=== PATIENT | female | born 2000 | race Caucasian/White ===

== ENCOUNTER 2018-04-07 15:27 | Emergency (ER) | payer MEDICAID ==
[~2018-04-07] VITALS: Ht 160 cm; Wt 70.3 kg
[2018-04-07 15:31] VITALS: BP 139/77
--- NOTE | 2018-04-07 15:36 | NUR ---
PT. AMBULATED TO LOBY WITH STEADY GAIT, RR EVEN AND UNLABORED WITH FAMILY MEMBER
--- NOTE | 2018-04-07 16:10 | NUR ---
PT. ARRIVED TO ED W C/O RASH UNDER L BREAST X TODAY. PER PT " IT IS ITCHY AND DRY" . DENIES N/V/D; SKIN IS PINK/WARM/DRY; AAOX4 WITH EVEN AND STEADY GAIT; LUNGS CLEAR BL; HR EVEN AND REGULAR; PT DENIES ANY FEVER, CP, SOB, OR COUGH AT THIS TIME; PATIENT STATES PAIN OF 0/10 AT THIS TIME; VSS; PATIENT POSITIONED FOR COMFORT; HOB ELEVATED; BEDRAILS UP X2; BED DOWN. ER MD MADE AWARE OF PT STATUS.
[2018-04-07 16:22] VITALS: BP 128/76
--- NOTE | 2018-04-07 16:22 | NUR ---
Patient discharged with v/s stable. Written and verbal after care instructions given and explained. Patient alert, oriented and verbalized understanding of instructions. Ambulatory with steady gait. All questions addressed prior to discharge. ID band removed. Patient advised to follow up with PMD. Rx of LOTRIMIN given. Patient educated on indication of medication including possible reaction and side effects. Opportunity to ask questions provided and answered.
== END 2018-04-07 16:22 | disposition home or self-care (01) ==
LOC: MED 15:27
DX: B35.4 Tinea corporis (principal)
CPT/HCPCS: 99282

== ENCOUNTER 2018-07-02 13:17 | Inpatient (IN) | payer MEDICAID ==
[~2018-07-02] VITALS: Ht 160 cm; Wt 74.4 kg
[2018-07-02 13:34] VITALS: BP 113/77
--- NOTE | 2018-07-02 13:39 | NUR ---
PT TAKEN TO BED 04 BY WHEELCHAIR.
--- NOTE | 2018-07-02 13:39 | NUR ---
Patient transferred to bed 4 via wheelchair by tech. RN evaluating patient at bedside.
--- NOTE | 2018-07-02 13:45 | NUR ---
PATIENT IS A 18 Y/O FEMALE WHO PRESENTS TO THE ED C/O BILATERAL FOOT PAIN. PT STATES THAT SHE WAS WALKING ON AN UNEVEN SIDEWALK WHEN SHE FELL. PT REPORTS 10/10 ACHING BILATERAL FOOT PAIN, APPEARS SWOLLEN, CMS INTACT. PT DENIES CP, SOB, N/V/D. PT AWAKE AND ALERT, RR EVEN/UNLABORED. PT REPOSITIONED FOR COMFORT, BED IN LOWEST POSITION. ER PROVIDER NOTIFIED. WILL CONTINUE TO MONITOR.
--- NOTE | 2018-07-02 13:51 | NUR ---
XRAY AT BEDSIDE.
[2018-07-02] MEDS ORDERED: ACETAMINOPHEN EXTRA STRENGTH 500 MG TAB PO ONE (14:10)
[2018-07-02] MEDS ORDERED: KETOROLAC 30 MG/ML VIAL IM ONE (15:25)
--- NOTE | 2018-07-02 16:27 | NUR ---
BILATERAL SHORT LEG SPLINTS APPLIED TO LOWER EXTREMITIES. PMC INTACT.
[2018-07-02] MEDS ORDERED: ONDANSETRON 4 MG/2 ML VIAL IM/IVP PRN (16:50)
[2018-07-02] MEDS ORDERED: HYDROcodone/APAP 5/325 MG 1 TAB TAB PO PRN (16:50)
[2018-07-02] MEDS ORDERED: MORPHINE SULFATE 4 MG/ML SYR IVP PRN (16:50)
[2018-07-02] MEDS ORDERED: ACETAMINOPHEN 325 MG TAB PO PRN (16:50)
[2018-07-02] MEDS ORDERED: LORazepam 2 MG/ML VIAL IM/IVP PRN (16:50)
[2018-07-02] MEDS ORDERED: ZOLPIDEM 5 MG TAB PO PRN (16:50)
[2018-07-02] MEDS ORDERED: DOCUSATE SODIUM 100 MG GELCAP PO PRN (16:50)
--- NOTE | 2018-07-02 16:59 | NUR ---
Dr. Sherwood evaluating patient at bedside.
[2018-07-02 17:10] LABS: BASOPHILS % (AUTO) 0.3 % (0.0-2.0); EOSINOPHILS # (AUTO) 0.1 K/uL (0-0.4); EOSINOPHILS % (AUTO) 1.1 % (0.0-4.0); HEMATOCRIT 37.4 % (36-48); HEMOGLOBIN 12.5 g/dL (12.0-16.0); LYMPHOCYTES # (AUTO) 2.2 K/uL (2.5-16.5); LYMPHOCYTES % (AUTO) 17.5 % (20.5-51.1); MEAN CORPUSCULAR HEMOGLOBIN 27 pg (27-31); MEAN CORPUSCULAR HGB CONC 33 g/dL (33-37); MEAN CORPUSCULAR VOLUME 81.5 fL (80-94); MONOCYTES # (AUTO) 0.6 K/uL (0.8-1.0); MONOCYTES % (AUTO) 4.7 % (1.7-9.3); NEUTROPHILS # (AUTO) 9.4 K/uL (1.8-7.7); NEUTROPHILS % (AUTO) 76.4 % (42.2-75.2); PLATELET COUNT (AUTO) 357 K/uL (140-450); RED BLOOD CELL COUNT(AUTO) 4.59 MIL/uL (4.20-5.40); RED CELL DISTRIBUTION WIDTH 13.2 % (11.6-13.7); WHITE BLOOD COUNT (AUTO) 12.3 K/uL (4.5-11.0)
--- NOTE | 2018-07-02 17:15 | NUR ---
Patient will be admitted to care of DR. TELLES. Admited to M/S. Will go to room 111A. Belongings list completed. Report to TAL RANDOLPH.
[2018-07-02 17:24] LABS: APPEARANCE,URINE HAZY (CLEAR); BILIRUBIN,URINE NEGATIVE (NEGATIVE); BLOOD, URINE 1+ (NEGATIVE); COLOR,URINE YELLOW (YELLOW); LEUKOCYTE ESTERASE ,URINE 2+ (NEGATIVE); NITRITE, URINE NEGATIVE (NEGATIVE); UGLUCOSE NEGATIVE (NEGATIVE)
--- NOTE | 2018-07-02 17:25 | NUR ---
PATIENT ARRIVED ON UNIT VIA GURNEY ACCOMPANIED WITH ER NURSE MELANY AND FAMILY MEMBER. PATIENT IS AOX4. DENIES PAIN AND SOB. NO SIGNS OF DISTRESS NOTED. IV ON L HAND 22G, CLEAN AND INTACT, SL. PATIENT WAS DIAGNOSED WITH BILATERAL FOOT FRACTURE.FOOD ARE SUPPORTED BY CASTS. SKIN INTACT AND CLEAN, NO ACTIVE OPEN WOUND. PATIENT IS BEDREST. CONTINENT. ORIENTED PATIENT AND FAMILY TO THE ROOM, HOW TO USE THE CALL LIGHT, TV, BED REMOTE, AND LIGHT. BOTH VERBALIZED UNDERSTANDING. DISCUSSED PLAN OF CARE WITH PATIENT, AND PATIENT VERBALIZED UNDERSTANDING. MRSA NARES COLLECTED AND VITAL SIGNS TAKEN. SAFETY MEASURES IN PLACE. INSTRUCTED PATIENT TO USED THE CALL LIGHT FOR ANY ASSISTANCE AND PATIENT WAS AWARE.
[2018-07-02 17:26] LABS: BARBITURATE, URINE NEG. ng/ml (NEG <=200); BENZODIAZEPINE, URINE NEG. ng/mL (NEG <=200); CANNABINOID, URINE NEG. ng/mL (NEG <=50); COCAINE, URINE NEG. ng/mL (NEG <=300); OPIATE, URINE NEG. ng/mL (NEG <=2000); PHENCYCLIDINE SCREEN,URINE NEG. ng/mL (NEG <=25)
[2018-07-02 17:27] LABS: PROTHROMBIN TIME 9.7 secs (10.8-13.4)
[2018-07-02 17:31] LABS: ALBUMIN 3.8 g/dL (3.4-5.0); ANION GAP 13.1 (8-16); CARBON DIOXIDE 26.6 mmol/L (21-32); CREATININE 0.6 mg/dL (0.6-1.3); POTASSIUM 3.7 mmol/L (3.5-5.1); TOTAL BILIRUBIN 0.2 mg/dL (0.0-1.0)
[2018-07-02 17:34] LABS: WBC,URINE 16-25 (MOD) /HPF (0-5)
[2018-07-02 17:38] LABS: FREE T4 (FREE THYROXINE) 1.12 ng/dL (0.76-1.46); PHOSPHORUS 3.9 mg/dL (2.5-4.9); THYROID STIMULATING HORMONE 1.11 uIU/mL (0.34-3.74)
[2018-07-02] MEDS: NACL 0.9% 1,000 ML IV SCH (18:15)
--- NOTE | 2018-07-02 18:15 | NUR ---
STARTED IVF PER MD ORDER. PATIENT IS TALKING TO FAMILY MEMBER AT BEDSIDE. NO SIGNS OF DISTRESS NOTED. SAFETY MEASURES IN PLACE.
[2018-07-02 18:41] VITALS: BP 108/70
--- NOTE | 2018-07-02 19:30 | NUR ---
ENDORSED PATIENT TO CASE WORKER NURSE FOR CONTINUITY OF CARE. PATIENT IS IN STABLE CONDITION.
--- NOTE | 2018-07-02 19:31 | NUR ---
Received endorsement from AM shift RN; patient is A/Ox4, able to make needs known, on bedrest. Patient is talking with boyfriend; introduced self, updated board. No SOB or distress noted, on room air. IV site on left hand, 22 gauge, intact with IVF running at 100mL/hr. Skin intact. Bed in the lowest position, call light within reach. Initial assessment done. Will continue to monitor.
[2018-07-02] MEDS: MORPHINE SULFATE 2 MG/ML SYR IVP PRN (21:08)
--- NOTE | 2018-07-02 21:35 | NUR ---
Due meds given; tolerated well.
--- NOTE | 2018-07-02 23:40 | NUR ---
Vitals taken, no SOB or distress noted.
[2018-07-03] VITALS: BP 118/71
--- NOTE | 2018-07-03 02:05 | NUR ---
Rounds made; patient asleep, eyes closed, visible chest rise and fall noted.
[2018-07-03] MEDS: NACL 0.9% 1,000 ML IV SCH ×3 (03:02→23:45)
--- NOTE | 2018-07-03 04:05 | NUR ---
Frequent checks made; no distress noted. Patient sleeping on right lateral side.
--- NOTE | 2018-07-03 07:10 | NUR ---
Endorsed patient to AM shift RN for continuity of care; patient in stable condition.
--- NOTE | 2018-07-03 07:20 | NUR ---
RECEIVED BEDSIDE REPORT FROM ORACLE ETL DEVELOPER NURSE FOR CONTINUITY OF CARE. PATIENT WAS AWAKE AND SITTING UP ON BED AT THIS TIME. BOYFRIEND ALEVISM WAS AT BEDSIDE. PATIENT IS AOX4. PATIENT DENIED PAIN AND SOB. RESPIRATION EVEN AND UNLABORED ON RA. NO SIGNS OF DISTRESS NOTED. IV ON L HAND 22G, INTACT AND CLEAN, INFUSING PER MD ORDER. SKIN INTACT AND CLEAN. PATIENT IS BEDREST AT THIS TIME. LEGS ARE SUPPORTED BY CASTS. DISCUSSED PLAN OF CARE WITH PATIENT AND ALEVISM, BOTH VERBALIZED OK. SAFETY PRECAUTION IN PLACE. BED IN LOW POSITION AND CALL LIGHT WITHIN REACH. INSTRUCTED PATIENT AND ALEVISM TO USE THE CALL LIGHT FOR ANY ASSISTANCE, AND BOTH VERBALIZED UNDERSTANDING.
[2018-07-03 08:00] VITALS: BP 101/61
[2018-07-03] MEDS: LACTOBACILLUS RHAMNOSUS GG 1 EACH CAP PO SCH (08:52)
--- NOTE | 2018-07-03 08:57 | NUR ---
PATIENT HAS BEEN SCREENED AND CATEGORIZED LOW NUTRITION RISK. PATIENT WILL BE SEEN WITHIN 7 DAYS OF ADMISSION. 07/09/[address]
[2018-07-03 08:59] LABS: BASOPHILS % (AUTO) 0.1 % (0.0-2.0); EOSINOPHILS # (AUTO) 0.1 K/uL (0-0.4); EOSINOPHILS % (AUTO) 1.4 % (0.0-4.0); HEMATOCRIT 37.1 % (36-48); HEMOGLOBIN 12.3 g/dL (12.0-16.0); LYMPHOCYTES % (AUTO) 21.7 % (20.5-51.1); MEAN CORPUSCULAR HEMOGLOBIN 27 pg (27-31); MEAN CORPUSCULAR HGB CONC 33 g/dL (33-37); MEAN CORPUSCULAR VOLUME 82.3 fL (80-94); MONOCYTES # (AUTO) 0.6 K/uL (0.8-1.0); MONOCYTES % (AUTO) 5.9 % (1.7-9.3); NEUTROPHILS # (AUTO) 6.7 K/uL (1.8-7.7); NEUTROPHILS % (AUTO) 70.9 % (42.2-75.2); PLATELET COUNT (AUTO) 333 K/uL (140-450); RED BLOOD CELL COUNT(AUTO) 4.51 MIL/uL (4.20-5.40); RED CELL DISTRIBUTION WIDTH 13.1 % (11.6-13.7); WHITE BLOOD COUNT (AUTO) 9.4 K/uL (4.5-11.0)
--- NOTE | 2018-07-03 09:45 | NUR ---
PATIENT IS SITTING UP ON BED AND TALKING TO BOYFRIEND DRUZE AT BEDSIDE. DENIES PAIN AND SOB. NO SIGNS OF DISTRESS NOTED. SAFETY MEASURES IN PLACE. BED IN LOW POSITION AND CALL LIGHT WITHIN REACH.
[2018-07-03 10:11] LABS: MAGNESIUM 1.8 mg/dL (1.8-2.4); PHOSPHORUS 3.3 mg/dL (2.5-4.9)
[2018-07-03 10:29] LABS: CARBON DIOXIDE 24.6 mmol/L (21-32); POTASSIUM 3.6 mmol/L (3.5-5.1)
[2018-07-03 10:30] LABS: CREATININE 0.6 mg/dL (0.6-1.3)
--- NOTE | 2018-07-03 10:51 | NUR ---
DR ALBRIGHT IS TALKING TO PATIENT AND MOTHER AT BEDSIDE. NO SIGNS OF DISTRESS NOTED. SAFETY MEASURES IN PLACE.
[2018-07-03] MEDS: MORPHINE SULFATE 2 MG/ML SYR IVP PRN (11:20)
--- NOTE | 2018-07-03 11:20 | NUR ---
PATIENT COMPLAINED L FOOT PAIN 09/22. ADMINISTERED PRN MORPHINE, PATIENT TOLERATED WELL. PATIENT IS TALKING TO MOTHER AT BEDSIDE. NO SIGNS OF DISTRESS NOTED. SAFETY MEASURES IN PLACE. BED IN LOW POSITION AND CALL LIGHT WITHIN REACH. INSTRUCTED PATIENT TO USE THE CALL LIGHT FOR ANY ASSISTANCE AND PATIENT WAS AWARE.
--- NOTE | 2018-07-03 13:18 | NUR ---
PATIENT IS AWAKE AND TALKING ON HER PHONE AT THIS TIME. DENIES PAIN AND SOB. NO SIGNS OF DISTRESS NOTED. SAFETY MEASURES IN PLACE. INSTRUCTED PATIENT TO USE THE CALL LIGHT FOR ANY ASSISTANCE AND PATIENT WAS AWARE.
[2018-07-03 16:00] VITALS: BP 107/56
--- NOTE | 2018-07-03 17:25 | NUR ---
PATIENT IS TALKING TO BOYFRIEND SYNAGOGUE AT BEDSIDE. DENIES PAIN AND SOB. NO SIGNS OF DISTRESS NOTED. SAFETY MEASURES IN PLACE. INSTRUCTED PATIENT TO USE THE CALL LIGHT FOR ANY ASSISTANCE AND PATIENT VERBALIZED UNDERSTANDING.
--- NOTE | 2018-07-03 17:57 | NUR ---
PATIENT IS AWAKE AND SITTING UP ON BED AND TALKING TO VISITORS. DENIES PAIN AND SOB. NO SIGNS OF DISTRESS NOTED. SAFETY MEASURES IN PLACE. INSTRUCTED PATIENT TO USE THE CALL LIGHT FOR ANY ASSISTANCE AND PATIENT WAS AWARE.
--- NOTE | 2018-07-03 19:17 | NUR ---
ENDORSED PATIENT AT BEDSIDE TO ACIDITY TESTER NURSE FOR CONTINUITY OF CARE. PATIENT IS IN STABLE CONDITION. NO SIGNS OF DISTRESS NOTED. FAMILY MEMBERS ARE BY BEDSIDE. SAFETY MEASURES IN PLACE.
--- NOTE | 2018-07-03 19:18 | NUR ---
RECEIVED REPORT FROM DAY SHIFT NURSE KWABENA-RN AT BEDSIDE. BED RESTING IN BED, ON ROOM AIR WITH NS RUNNING @100ML/HR. PT FAMILY AT BEDSIDE. DISCUSSED PLAN OF CARE AND PT VERBALIZED UNDERSTANDING. NO S/S OF RESPIRATORY DISTRESS OR DISCOMFORT NOTED AT THIS TIME. BILATERAL FOOT FRACTURES WITH CAST IN PLACE. BED IN LOWEST POSITION, BED BREAKS ON, BOTH SIDE RAILS UP, WITH BEDSIDE COMMODE WITHIN REACH. BEDSIDE TABLE AND CALL LIGHT ARE WITHIN REACH. WILL CONTINUE TO MONITOR.
[2018-07-03 20:00] VITALS: BP 112/68
--- NOTE | 2018-07-03 20:00 | NUR ---
VITAL SIGNS TAKEN AND TOLERATED WELL. NO S/S OF RESPIRATORY DISTRESS OR DISCOMFORT NOTED AT THIS TIME. WILL CONTINUE TO MONITOR.
--- NOTE | 2018-07-03 20:32 | NUR ---
SCHEDULED MEDICATION GIVEN AND TOLERATED WELL. PT C/O PAIN 06/22- WILL ADMINISTER PAIN MEDICATION. NO S/S OF RESPIRATORY DISTRESS OR DISCOMFORT NOTED AT THIS TIME. WILL CONTINUE TO MONITOR.
--- NOTE | 2018-07-03 20:42 | NUR ---
NORCO GIVEN FOR PAIN. PT TOLERATED WELL. NO S/S OF RESPIRATORY DISTRESS OR DISCOMFORT NOTED AT THIS TIME. WILL CONTINUE TO MONITOR.
--- NOTE | 2018-07-03 23:00 | NUR ---
PT SLEEPING AT THIS TIME. NO S/S OF RESPIRATORY DISTRESS OR DISCOMFORT NOTED AT THIS TIME. WILL CONTINUE TO MONITOR.
[2018-07-04] VITALS: BP 100/51
--- NOTE | 2018-07-04 | NUR ---
VITAL SIGNS TAKEN AND TOLERATED WELL. NO S/S OF RESPIRATORY DISTRESS OR DISCOMFORT NOTED AT THIS TIME. WILL CONTINUE TO MONITOR.
--- NOTE | 2018-07-04 02:00 | NUR ---
PT RESTING IN BED. NO S/S OF RESPIRATORY DISTRESS OR DISCOMFORT NOTED AT THIS TIME. WILL CONTINUE TO MONITOR.
--- NOTE | 2018-07-04 04:00 | NUR ---
PT RESTING IN BED. NO S/S OF RESPIRATORY DISTRESS OR DISCOMFORT NOTED AT THIS TIME. WILL CONTINUE TO MONITOR.
--- NOTE | 2018-07-04 06:00 | NUR ---
PT RESTING IN BED. NO S/S OF RESPIRATORY DISTRESS OR DISCOMFORT NOTED AT THIS TIME. WILL CONTINUE TO MONITOR.
[2018-07-04 07:07] LABS: BASOPHILS % (AUTO) 0.2 % (0.0-2.0); EOSINOPHILS # (AUTO) 0.2 K/uL (0-0.4); HEMATOCRIT 35.1 % (36-48); HEMOGLOBIN 11.6 g/dL (12.0-16.0); LYMPHOCYTES # (AUTO) 2.8 K/uL (2.5-16.5); LYMPHOCYTES % (AUTO) 39.9 % (20.5-51.1); MEAN CORPUSCULAR HEMOGLOBIN 28 pg (27-31); MEAN CORPUSCULAR HGB CONC 33 g/dL (33-37); MEAN CORPUSCULAR VOLUME 83.3 fL (80-94); MONOCYTES # (AUTO) 0.6 K/uL (0.8-1.0); MONOCYTES % (AUTO) 7.9 % (1.7-9.3); NEUTROPHILS # (AUTO) 3.5 K/uL (1.8-7.7); PLATELET COUNT (AUTO) 313 K/uL (140-450); RED BLOOD CELL COUNT(AUTO) 4.21 MIL/uL (4.20-5.40); WHITE BLOOD COUNT (AUTO) 7.1 K/uL (4.5-11.0)
[2018-07-04 07:08] LABS: ANION GAP 11.7 (8-16); CREATININE 0.5 mg/dL (0.6-1.3); POTASSIUM 3.7 mmol/L (3.5-5.1)
--- NOTE | 2018-07-04 07:14 | NUR ---
ENDORSED PT CARE TO DAY SHIFT NURSE HIPOLITO FOR CONTINUITY OF CARE.
[2018-07-04 07:15] LABS: MAGNESIUM 1.9 mg/dL (1.8-2.4); PHOSPHORUS 3.6 mg/dL (2.5-4.9)
--- NOTE | 2018-07-04 07:24 | NUR ---
RECEIVED REPORT FROM CORRECTIVE THERAPIST RN AT BEDSIDE. BED RESTING IN BED, ON ROOM AIR WITH NS RUNNING @100ML/HR. PT FAMILY AT BEDSIDE. DISCUSSED PLAN OF CARE AND PT VERBALIZED UNDERSTANDING. NO S/S OF RESPIRATORY DISTRESS OR DISCOMFORT NOTED AT THIS TIME. BILATERAL FOOT FRACTURES WITH CAST IN PLACE. BED IN LOWEST POSITION, BED BREAKS ON, BOTH SIDE RAILS UP, WITH BEDSIDE COMMODE WITHIN REACH. BEDSIDE TABLE AND CALL LIGHT ARE WITHIN REACH. WILL CONTINUE TO MONITOR.
[2018-07-04 08:00] VITALS: BP 101/67
[2018-07-04] MEDS: LACTOBACILLUS RHAMNOSUS GG 1 EACH CAP PO SCH (08:47)
[2018-07-04] MEDS: IBUPROFEN 600 MG TAB PO SCH ×2 (08:47→12:00)
[2018-07-04] MEDS: NACL 0.9% 1,000 ML IV SCH (08:49)
[2018-07-04] MEDS ORDERED: IBUP-2213 PO (09:22)
[2018-07-04] MEDS ORDERED: ACET-9525 PO (09:22)
--- NOTE | 2018-07-04 09:47 | NUR ---
ADMINISTERED MORNING MEDS TO PT. PT TOLERATED THEM WELL. NO SIGNS OF PAIN OR DISTRESS. WILL ROUND FREQUENTLY ON PT. BED IN LOW POSITION, CALL LIGHT WITHIN REACH.
--- NOTE | 2018-07-04 12:04 | NUR ---
PT RESTING IN BED. NO SIGNS OF PAIN OR DISTRESS. WILL ROUND FREQUENTLY ON PT. FAMILY AT BEDSIDE.
--- NOTE | 2018-07-04 15:35 | NUR ---
PT DISCHARGED HOME FOR SELF CARE. PT DISCHARGED HOME FOR SELF CARE. PT DISCHARGE TEACHING GIVEN WITH PT VERBALIZING UNDERSTANDING. ALL PERSONAL BELONGINGS WERE TAKEN WITH PT. IV REMOVED WITH TIP INTACT. WRIST BANDS REMOVED AND PLACED IN SHRED BIN. PT LEFT IN STABLE CONDITION ACCOMPANIED BY FAMILY.
== END 2018-07-04 14:50 | disposition home or self-care (01) | DRG 342 ==
LOC: MED 13:17 → MTU 16:46
PROVIDERS: ADMIT General Practice; ATTEND General Practice
PROC: 2W3RX2Z Immobilization of Left Lower Leg using Cast (ICD-10-PCS; principal; 2018-07-02)
PROC: 2W3QX2Z Immobilization of Right Lower Leg using Cast (ICD-10-PCS; 2018-07-02)
DX: S82.302A Unspecified fracture of lower end of left tibia, initial encounter for closed fracture (principal); N39.0 Urinary tract infection, site not specified; S92.351A Displaced fracture of fifth metatarsal bone, right foot, initial encounter for closed fracture; S92.152A Displaced avulsion fracture (chip fracture) of left talus, initial encounter for closed fracture; W18.30XA Fall on same level, unspecified, initial encounter; Y93.89 Activity, other specified; Y92.89 Other specified places as the place of occurrence of the external cause; Y99.8 Other external cause status
CPT/HCPCS: 36415; 71045; 73610; 73630; 80048; 80053; 80305; 81001; 82150; 83036; 83690; 83735; 83880; 84100; 84439; 84443; 84484; 85025; 85610; 85730; 87081; 87086; 97161-GP; 99285; J0696; J1644; J1885; J2270; J7030; J7060; Q0092

== ENCOUNTER 2018-08-09 08:00 | Inpatient (IN) | payer MEDICAID ==
[~2018-08-09] VITALS: Ht 162.6 cm; Wt 76.7 kg
[~2018-08-09 08:00] MED LIST: ACET-9525 PO; IBUP-2213 PO
[2018-08-09 08:09] VITALS: BP 85/46
--- NOTE | 2018-08-09 08:15 | NUR ---
Patient ambulated to bed 12. RN evaluating patient at bedside.
--- NOTE | 2018-08-09 08:15 | NUR ---
BIB MOTHER. AAO X4 C/O RIGHT FLANK SHARP/STABBING PAIN , NON RADIATING X TODAY WITH N/V. ABDOMEN NON TENDER TO TOUCH. PT STATES FULLNESS IN BLADDER, DENIES DYSURIA, HEMATURIA. ER TO EVALUATE PT.
[2018-08-09] MEDS ORDERED: NACL 0.9% 1,000 ML IV ONE (08:32)
[2018-08-09] MEDS ORDERED: NACL 0.9% 1,000 ML IV SCH (08:32)
[2018-08-09] MEDS ORDERED: MORPHINE SULFATE 4 MG/ML SYR IVP ONE (08:35)
[2018-08-09] MEDS ORDERED: METOCLOPRAMIDE 10 MG/2 ML INJ VIAL IVP ONE (08:35)
[2018-08-09] MEDS ORDERED: GLYCOPYRROLATE 0.2 MG/ML VIAL IV ONE (08:35)
[2018-08-09] MEDS ORDERED: KETOROLAC 30 MG/ML VIAL IVP ONE (08:35)
[2018-08-09 08:58] LABS: BASOPHILS % (AUTO) 0.3 % (0.0-2.0); EOSINOPHILS # (AUTO) 0.1 K/uL (0-0.4); EOSINOPHILS % (AUTO) 0.6 % (0.0-4.0); HEMOGLOBIN 12.8 g/dL (12.0-16.0); LYMPHOCYTES % (AUTO) 14.7 % (20.5-51.1); MEAN CORPUSCULAR HEMOGLOBIN 27 pg (27-31); MEAN CORPUSCULAR HGB CONC 33 g/dL (33-37); MEAN CORPUSCULAR VOLUME 81.5 fL (80-94); MONOCYTES # (AUTO) 0.8 K/uL (0.8-1.0); MONOCYTES % (AUTO) 5.8 % (1.7-9.3); NEUTROPHILS # (AUTO) 10.6 K/uL (1.8-7.7); NEUTROPHILS % (AUTO) 78.6 % (42.2-75.2); PLATELET COUNT (AUTO) 327 K/uL (140-450); RED BLOOD CELL COUNT(AUTO) 4.78 MIL/uL (4.20-5.40); RED CELL DISTRIBUTION WIDTH 13.2 % (11.6-13.7); WHITE BLOOD COUNT (AUTO) 13.5 K/uL (4.5-11.0)
[2018-08-09 08:58] LABS: APPEARANCE,URINE HAZY (CLEAR); BILIRUBIN,URINE 1+ (NEGATIVE); BLOOD, URINE TRACE-I (NEGATIVE); COLOR,URINE YELLOW (YELLOW); LEUKOCYTE ESTERASE ,URINE 1+ (NEGATIVE); NITRITE, URINE NEGATIVE (NEGATIVE); PH,URINE 5.5 (5.0-9.0); UGLUCOSE NEGATIVE (NEGATIVE)
--- NOTE | 2018-08-09 09:01 | NUR ---
PT TAKEN TO CT VIA BED BY GEOLOGICAL SCOUT
[2018-08-09 09:10] LABS: BARBITURATE, URINE NEG. ng/ml (NEG <=200); BENZODIAZEPINE, URINE NEG. ng/mL (NEG <=200); CANNABINOID, URINE NEG. ng/mL (NEG <=50); COCAINE, URINE NEG. ng/mL (NEG <=300); OPIATE, URINE NEG. ng/mL (NEG <=2000); PHENCYCLIDINE SCREEN,URINE NEG. ng/mL (NEG <=25)
--- NOTE | 2018-08-09 09:13 | NUR ---
PT TAKEN BACK TO ROOM VIA BED BY ESTHETICIAN
[2018-08-09 09:20] LABS: ANION GAP 13.4 (8-16); CARBON DIOXIDE 22.8 mmol/L (21-32); CREATININE 0.7 mg/dL (0.6-1.3); POTASSIUM 3.2 mmol/L (3.5-5.1)
--- NOTE | 2018-08-09 09:25 | NUR ---
Patient transferred to bed 9 for further care. RN re-evaluating patient at bedside.
[2018-08-09 09:26] LABS: ALBUMIN 3.9 g/dL (3.4-5.0); TOTAL BILIRUBIN 0.3 mg/dL (0.0-1.0)
[2018-08-09 09:31] LABS: RBC,URINE 0-5 /HPF (0-5)
[2018-08-09 09:40] LABS: URIC ACID 4.3 mg/dL (2.6-7.2)
[2018-08-09] MEDS ORDERED: LEVOFLOXACIN 500 MG/D5W PREMIX 100 ML IV ONE (09:45)
[2018-08-09] MEDS ORDERED: IBUP-1842 PO (10:41)
--- NOTE | 2018-08-09 10:50 | NUR ---
TOOL REPAIR TECHNICIAN AT BEDSIDE
[2018-08-09] MEDS: NACL 0.9% 1,000 ML IV SCH ×2 (10:52→20:52)
[2018-08-09] MEDS ORDERED: DOCUSATE SODIUM 100 MG GELCAP PO PRN (10:55)
[2018-08-09] MEDS ORDERED: HYDROcodone/APAP 7.5/325 MG 1 TAB PO PRN (10:55)
[2018-08-09] MEDS ORDERED: ACETAMINOPHEN 325 MG TAB PO PRN (10:55)
--- NOTE | 2018-08-09 11:19 | NUR ---
RADIOLOGY AT BEDSIDE
[2018-08-09 11:20] LABS: PROTHROMBIN TIME 9.7 secs (10.8-13.4)
[2018-08-09 11:33] LABS: CHOL/HDL RATIO 3.1 (1-4.5); FREE T4 (FREE THYROXINE) 1.18 ng/dL (0.76-1.46); MAGNESIUM 1.7 mg/dL (1.8-2.4); PHOSPHORUS 2.7 mg/dL (2.5-4.9); THYROID STIMULATING HORMONE 1.38 uIU/mL (0.34-3.74)
[2018-08-09 11:35] VITALS: BP 95/60
--- NOTE | 2018-08-09 11:35 | NUR ---
Patient will be admitted to care of Dr Calle. Admited to Tele. Will go to room 107 B . Belongings list completed. Report to TOMASA Cosby.
--- NOTE | 2018-08-09 11:35 | NUR ---
RECEIVED PATIENT FROM ER BY WHEELCHAIR. PATIENT AMBULATED TO BED WITH STEADY GAIT. NO SIGNS OF DISTRESS. VITALS SIGNS STABLE, SKIN CLEAR, 20 G IV CATHETER TO LEFT AC. FLUSHING WELL. DENIES PAIN AT THIS TIME. DENIES NAUSEA. PATENT HAS BRACE ON LOWER RIGHT EXTREMITY FOR PREVIOUSLY TREATED FRACTURE. CIRCULATION CHECKS POSITIVE. ORIENTED PATIENT TO ROOM AND UNIT. SAFETY PRECAUTIONS IN PLACE.
[2018-08-09] MEDS ORDERED: ONDANSETRON 4 MG ODT SL PRN (13:00)
[2018-08-09] MEDS: ONDANSETRON 4 MG/2 ML VIAL IM/IVP PRN ×2 (13:51→21:03)
[2018-08-09] MEDS: KETOROLAC 15 MG/ML VIAL IM PRN (13:51)
[2018-08-09] MEDS: MAGNESIUM OXIDE 400 MG TAB PO SCH ×2 (13:51→15:35)
--- NOTE | 2018-08-09 13:51 | NUR ---
ADMINISTERED PRN TORADOL AND ZOFRAN FOR ABD PAIN AND NAUSEA. PATIENT HAD 100ML EMESIS. PATIENT STATES NAUSEA IS GETTING BETTER BUT DOES NOT WANT TO TAKE THE ORAL MAG-OXIDE AT THIS TIME. WILL NON-ADMIN NOW AND ADMINISTERED ONCE NAUSEA HAS SUBSIDED.
--- NOTE | 2018-08-09 15:44 | NUR ---
ADMINISTERED SCHEDULED MEDICATIONS. PATIENT TOLERATING WELL. NO C/O PAIN OR NAUSEA AT THIS TIME. CALL LIGHT IN REACH. Addendum: 08/09/18 at 1942 by Alea Oconnor RN ADMINISTERED MAG-OX AND ROCEPHIN AT THIS TIME.
[2018-08-09] MEDS ORDERED: POTASSIUM CHLORIDE 40 MEQ, LIDOCAINE MPF 1% - 5 mL VIAL 25 MG in NACL 0.9% 250 ML IV SCH (16:00)
--- NOTE | 2018-08-09 17:10 | NUR ---
ADMINISTERED SCHEDULED MEDICATIONS AND PRN ZOFRAN SL FOR NAUSEA. SPOKE TO CHARGE ABOUT GIVING SL ZOFRAN 3 HOURS FROM IV ZOFRAN, CHARGE APPROVED THE ADMINISTRATION.
--- NOTE | 2018-08-09 19:15 | NUR ---
RECIEVED PT AAOX2 ,NID NO COMPLAIN OF ABDL. PAIN AT THIS TIME ,IV SITE INTACT AND PATENT , PLAN OF CARE DISCUSSED AND VERBALIZE UNDERSTANDING , CALL LIGHT WITHIN REACH ,SIDERAILS UP X2 ,BED IN LOW POSITION , WILL CONTINUE TO MONITOR.
--- NOTE | 2018-08-09 19:15 | NUR ---
GAVE BEDSIDE REPORT TO DATA CAPTURE SPECIALIST RNQASIM. PATIENT SITTING UP IN BED WITH FAMILY AT BEDSIDE. STABLE CONDITION. NO C/O OF NAUSEA AT THIS TIME.
[2018-08-09 20:00] VITALS: BP 110/58
--- NOTE | 2018-08-09 21:03 | NUR ---
PT COMPLAINS OF NAUSEA BUT NO VOMITING , ABDL. PAIN BEARABLE AT THIS TIME PT.'S SAID , ZOFRAN TIV GIVEN ORDERED. WILL CONTINUE TO MONITOR.
--- NOTE | 2018-08-09 22:00 | NUR ---
VOIDED FREELY , STRAINED URINE ORDERED. STRAINED URINE LOOK ALIKE WHITE TIDY SAND. ADBL. PAIN BEARABLE THIS TIME PT'S SAID. WILL CONTINUE TO MONITOR.
[2018-08-10] VITALS: BP 111/60
--- NOTE | 2018-08-10 | NUR ---
MADE ROUNDS , NO FURTHER COMPLAIN MADE AT THIS TIME ,CALL LIGHT WITHIN REACH.
--- NOTE | 2018-08-10 02:00 | NUR ---
VOIDED FREELY ,STRAINED U/O OREDERED. STRAINED U/O HAS LOOK ALIKE WHITE TINY SAND PARTICLES, WILL CONTINUE TO MONITOR.
[2018-08-10 04:00] VITALS: BP 111/59
--- NOTE | 2018-08-10 04:00 | NUR ---
MADE ROUNDS . NO COMPLAIN MADE AT THIS TIME.
--- NOTE | 2018-08-10 06:00 | NUR ---
MADE ROUNDS , NO FURTHER MADE AT THIS TIME , CALL LIGHT WITHIN REACH .
[2018-08-10] MEDS: NACL 0.9% 1,000 ML IV SCH (06:36)
--- NOTE | 2018-08-10 07:20 | NUR ---
RECEIVED HAND OFF REPORT FROM GATE CLERK NURSE PT IS AWAKE AND IN STABLE CONDITION ALL SAFETY MEASURES ARE IN PLACE WILL CONTINUE TO MONITOR.
--- NOTE | 2018-08-10 07:25 | NUR ---
ENDORSED TO AM SHIFT FOR CONTINUITY OF CARE . V/S WNL .
[2018-08-10 07:31] LABS: MAGNESIUM 1.9 mg/dL (1.8-2.4); PHOSPHORUS 3.9 mg/dL (2.5-4.9)
[2018-08-10 07:55] LABS: BASOPHILS % (AUTO) 0.3 % (0.0-2.0); EOSINOPHILS # (AUTO) 0.1 K/uL (0-0.4); EOSINOPHILS % (AUTO) 0.5 % (0.0-4.0); HEMATOCRIT 34.8 % (36-48); HEMOGLOBIN 11.6 g/dL (12.0-16.0); LYMPHOCYTES # (AUTO) 1.8 K/uL (2.5-16.5); LYMPHOCYTES % (AUTO) 15.6 % (20.5-51.1); MEAN CORPUSCULAR HEMOGLOBIN 27 pg (27-31); MEAN CORPUSCULAR HGB CONC 33 g/dL (33-37); MEAN CORPUSCULAR VOLUME 81.7 fL (80-94); MONOCYTES # (AUTO) 1.2 K/uL (0.8-1.0); MONOCYTES % (AUTO) 10.5 % (1.7-9.3); NEUTROPHILS # (AUTO) 8.3 K/uL (1.8-7.7); NEUTROPHILS % (AUTO) 73.1 % (42.2-75.2); PLATELET COUNT (AUTO) 294 K/uL (140-450); RED BLOOD CELL COUNT(AUTO) 4.26 MIL/uL (4.20-5.40); RED CELL DISTRIBUTION WIDTH 13.4 % (11.6-13.7); WHITE BLOOD COUNT (AUTO) 11.4 K/uL (4.5-11.0)
[2018-08-10 08:00] VITALS: BP 106/63
[2018-08-10 08:03] LABS: ANION GAP 12.3 (8-16); CARBON DIOXIDE 23.5 mmol/L (21-32); CREATININE 0.7 mg/dL (0.6-1.3); POTASSIUM 3.8 mmol/L (3.5-5.1)
--- NOTE | 2018-08-10 09:14 | NUR ---
FREQUENT ROUNDING ON PT PT IS STABLE AND IN NO APPARENT DISTRESS, ALL SAFETY MEASURES ARE IN PLACE WILL CONTINUE TO MONITOR,
--- NOTE | 2018-08-10 09:22 | NUR ---
PATIENT HAS BEEN SCREENED AND CATEGORIZED LOW NUTRITION RISK. PATIENT WILL BE SEEN WITHIN 7 DAYS OF ADMISSION. 08/15/[address]
[2018-08-10] MEDS: KETOROLAC 15 MG/ML VIAL IM PRN (10:26)
--- NOTE | 2018-08-10 11:19 | NUR ---
FREQUENT ROUNDING ON PATIENT PT IS STABLE AND IN NO APPARENT DISTRESS. ALL SAFETY MEASURES ARE IN PLACE WILL CONTINUE TO MONITOR.
[2018-08-10 12:00] VITALS: BP 100/53
--- NOTE | 2018-08-10 13:58 | NUR ---
FREQUENT ROUNDING ON PATIENT PT IS STABLE AND IN NO APPARENT DISTRESS. ALL SAFETY MEASURES ARE IN PLACE. WILL CONTINUE TO MONITOR.
--- NOTE | 2018-08-10 15:05 | NUR ---
FREQUENT ROUNDING ON PT PT IS AWAKE IN BED PT IS STABLE AND IN NO APPARENT DISTRESS, ALL SAFETY MEASURES ARE IN PLACE, WILL CONTINUE TO MONITOR.
[2018-08-10 16:00] VITALS: BP 106/62
--- NOTE | 2018-08-10 17:43 | NUR ---
FREQUENT ROUNDING ON PT PT IS STABLE AND IN NO APPARENT DISTRESS. FAMILY AT BEDSIDE. ALL SAFETY MEASURES ARE IN PLACE WILL CONTINUE TO MONITOR
--- NOTE | 2018-08-10 19:11 | NUR ---
ENDORSED PT TO CORPORATE AUDITOR NURSE PT IS AWAKE AND STABLE. FAMILY AT PT BEDSIDE. PT APPEARS STABLE AND IN NO APPARENT DISTRESS. ALL SAFETY MEASURES ARE IN PLACE.
--- NOTE | 2018-08-10 19:12 | NUR ---
RECEIVED REPORT FROM DAY SHIFT NURSE CORY-TOMASA AT BEDSIDE. PT RESTING IN BED, AOX4, ON ROOM AIR WITH RIGHT FA #22 RUNNING TKO. DISCUSSED PLAN OF CARE AND PT VERBALIZED UNDERSTANDING. NO S/S OF RESPIRATORY DISTRESS OR DISCOMFORT NOTED AT THIS TIME. ORDERS TO CONTINUE TO STRAIN URINE FOR STONES- BEDSIDE COMMODE IN PLACE. PT HAS RIGHT BOOT ON FOOT- AMBULATORY WITH ASSISTANCE. BED IN LOWEST POSITION, BED BREAKS ON, BOTH SIDE RAILS UP AND FALL PRECAUTIONS IN PLACE. BEDSIDE TABLE AND CALL LIGHT ARE WITHIN REACH. WILL CONTINUE TO MONITOR.
[2018-08-10 19:36] VITALS: BP 97/57
--- NOTE | 2018-08-10 20:00 | NUR ---
VITAL SIGNS TAKEN AND TOLERATED WELL. NO S/S OF RESPIRATORY DISTRESS OR DISCOMFORT NOTED AT THIS TIME. WILL CONTINUE TO MONITOR.
--- NOTE | 2018-08-10 22:00 | NUR ---
PT SLEEPING IN BED. NO S/S OF RESPIRATORY DISTRESS OR DISCOMFORT NOTED AT THIS TIME. WILL CONTINUE TO MONITOR.
[2018-08-11] VITALS: BP 91/46
--- NOTE | 2018-08-11 | NUR ---
VITAL SIGNS TAKEN AND TOLERATED WELL. NO S/S OF RESPIRATORY DISTRESS OR DISCOMFORT NOTED AT THIS TIME. WILL CONTINUE TO MONITOR.
--- NOTE | 2018-08-11 02:00 | NUR ---
PT CONTINUES TO SLEEP IN BED. NO S/S OF RESPIRATORY DISTRESS OR DISCOMFORT NOTED AT THIS TIME. WILL CONTINUE TO MONITOR.
[2018-08-11] MEDS: NACL 0.9% 1,000 ML IV SCH (03:58)
--- NOTE | 2018-08-11 03:58 | NUR ---
NEW IVF BAG HUNG AND TOLERATED WELL. NO S/S OF RESPIRATORY DISTRESS OR DISCOMFORT NOTED AT THIS TIME. WILL CONTINUE TO MONITOR.
--- NOTE | 2018-08-11 06:00 | NUR ---
PT RESTING IN BED. NO S/S OF RESPIRATORY DISTRESS OR DISCOMFORT NOTED AT THIS TIME. WILL CONTINUE TO MONITOR.
[2018-08-11 06:52] LABS: PHOSPHORUS 4.4 mg/dL (2.5-4.9)
[2018-08-11 07:03] LABS: CARBON DIOXIDE 24.9 mmol/L (21-32); CREATININE 0.6 mg/dL (0.6-1.3); POTASSIUM 3.9 mmol/L (3.5-5.1)
[2018-08-11 07:29] LABS: BASOPHILS % (AUTO) 0.3 % (0.0-2.0); EOSINOPHILS # (AUTO) 0.2 K/uL (0-0.4); EOSINOPHILS % (AUTO) 1.6 % (0.0-4.0); HEMATOCRIT 34.1 % (36-48); HEMOGLOBIN 11.5 g/dL (12.0-16.0); LYMPHOCYTES # (AUTO) 2.2 K/uL (2.5-16.5); LYMPHOCYTES % (AUTO) 23.2 % (20.5-51.1); MEAN CORPUSCULAR HEMOGLOBIN 28 pg (27-31); MEAN CORPUSCULAR HGB CONC 34 g/dL (33-37); MEAN CORPUSCULAR VOLUME 82.1 fL (80-94); MONOCYTES # (AUTO) 0.8 K/uL (0.8-1.0); MONOCYTES % (AUTO) 8.2 % (1.7-9.3); NEUTROPHILS # (AUTO) 6.4 K/uL (1.8-7.7); NEUTROPHILS % (AUTO) 66.7 % (42.2-75.2); PLATELET COUNT (AUTO) 296 K/uL (140-450); RED BLOOD CELL COUNT(AUTO) 4.15 MIL/uL (4.20-5.40); RED CELL DISTRIBUTION WIDTH 13.2 % (11.6-13.7); WHITE BLOOD COUNT (AUTO) 9.6 K/uL (4.5-11.0)
--- NOTE | 2018-08-11 07:30 | NUR ---
RECEIVED BEDSIDE REPORT FROM TOMASA JENSEN. PT STABLE, AWAKE, ALERT AND ORIENTED X4. NO SIGNS OF DISTRESS NOTED. NO REDNESS, SWELLING, OR INFLAMMATION NOTED ON IV SITE. CALL CARRILLO WITHIN REACH. BED IN LOWEST POSITION. PT HAS BEDSIDE COMMODE. SAFETY MEASURES IN PLACE. PLAN OF CARE REVIEWED.
[2018-08-11 08:00] VITALS: BP 111/72
[2018-08-11] MEDS ORDERED: OMEP20TC12 PO (08:16)
[2018-08-11] MEDS ORDERED: SULF-59 PO (08:16)
[2018-08-11] MEDS ORDERED: LACT10CA1 PO (08:16)
--- NOTE | 2018-08-11 09:20 | NUR ---
PT STABLE, NO SIGNS OF DISTRESS NOTED. NO NEEDS AT THIS TIME. SIGNIFICANT OTHER AT THE BEDSIDE.
--- NOTE | 2018-08-11 11:55 | NUR ---
D/C INSTRUCTIONS, PAPERWORK, AND PRESCRIPTION GIVEN. PT VERBALIZED UNDERSTANDING. QUESTIONS AND CONCERNS WERE ADDRESSED. DR MINER AT THE BEDSIDE. D/C IV, CATHETER TIP INTACT, BLEEDING CONTROLLED. PT STABLE, AMBULATES WITH STEADY GAIT, COMMUNICATES APPROPRIATELY WITH STAFF. SKIN INTACT. PNEUMONIA AND FLU VACCINE N/A. PT TOOK ALL BELONGINGS WITH HER. ESCORTED PT AND SIGNIFICANT OTHER TO THE LOBBY. PT WILL BE GOING BACK TO HOME.
[2018-08-11 15:46] LABS: FOLIC ACID 12.8 ng/mL (>3.0)
== END 2018-08-11 12:05 | disposition home or self-care (01) | DRG 463 ==
LOC: MED 08:00 → MTU 10:58
PROVIDERS: ADMIT General Practice; ATTEND General Practice
DX: N12 Tubulo-interstitial nephritis, not specified as acute or chronic (principal); E83.42 Hypomagnesemia; K76.89 Other specified diseases of liver; E87.6 Hypokalemia; K80.50 Calculus of bile duct without cholangitis or cholecystitis without obstruction; D18.09 Hemangioma of other sites; D50.9 Iron deficiency anemia, unspecified; Z82.49 Family history of ischemic heart disease and other diseases of the circulatory system; Z83.3 Family history of diabetes mellitus
CPT/HCPCS: 36415; 71045; 76700; 80048; 80053; 80305; 81001; 81025; 82150; 82550; 82607; 82728; 82746; 83036; 83540; 83605; 83690; 83735; 83880; 84100; 84439; 84443; 84550; 84703; 85025; 85045; 85610; 85730; 87040; 87081; 87086; 96361; 96374; 99285; J0696; J1885; J1956; J2001; J2270; J2405; J2765; J3480; J3490; J7030; J7060; Q0092; Q0162

== ENCOUNTER 2018-11-14 18:25 | Emergency (ER) | payer BC, MEDICAID ==
[~2018-11-14] VITALS: Ht 162.6 cm; Wt 78.9 kg
[~2018-11-14 18:25] MED LIST changes: -ACET-9525 PO; +IBUP-1842 PO; -IBUP-2213 PO; +LACT10CA1 PO; +OMEP20TC12 PO; +SULF-59 PO
[2018-11-14 18:28] VITALS: BP 131/87
[2018-11-14 20:54] VITALS: BP 105/62
== END 2018-11-14 20:54 | disposition home or self-care (01) ==
LOC: MED 18:25
DX: R07.89 Other chest pain (principal); I10 Essential (primary) hypertension; Z79.899 Other long term (current) drug therapy
CPT/HCPCS: 71046; 81025; 99284

== ENCOUNTER 2019-03-26 07:20 | Emergency (ER) | payer BC, MEDICAID | END 2019-03-26 10:10 | disposition home or self-care (01) | LOC: MED 07:20 | DX: O23.11 Infections of bladder in pregnancy, first trimester (principal); O23.41 Unspecified infection of urinary tract in pregnancy, first trimester; Z79.899 Other long term (current) drug therapy | CPT/HCPCS: 36415; 76801; 84702; 99284; Q0092 ==

== ENCOUNTER 2019-05-12 05:14 | Emergency (ER) | payer MEDICAID ==
[~2019-05-12] VITALS: Ht 152.4 cm; Wt 77.1 kg
[2019-05-12 05:29] VITALS: BP 104/53
[2019-05-12] MEDS ORDERED: ONDANSETRON 4 MG/2 ML VIAL IVP ONE ×2 (06:00→07:05)
[2019-05-12] MEDS ORDERED: MORPHINE SULFATE 4 MG/ML SYR IVP ONE (06:00)
[2019-05-12] MEDS ORDERED: cefTRIAXone 1,000 MG VIAL ONE (06:07)
[2019-05-12 06:29] LABS: BASOPHILS # (AUTO) 0.1 K/uL (0.00-0.22); BASOPHILS % (AUTO) 0.9 % (0.0-2.0); EOSINOPHILS # (AUTO) 0.1 K/uL (0-0.4); EOSINOPHILS % (AUTO) 0.7 % (0.0-4.0); HEMATOCRIT 35.5 % (36-48); HEMOGLOBIN 11.9 g/dL (12.0-16.0); LYMPHOCYTES # (AUTO) 2.4 K/uL (2.5-16.5); LYMPHOCYTES % (AUTO) 19.1 % (20.5-51.1); MEAN CORPUSCULAR HEMOGLOBIN 28 pg (27-31); MEAN CORPUSCULAR HGB CONC 33 g/dL (33-37); MEAN CORPUSCULAR VOLUME 82.5 fL (80-94); MONOCYTES # (AUTO) 0.7 K/uL (0.8-1.0); MONOCYTES % (AUTO) 5.3 % (1.7-9.3); NEUTROPHILS # (AUTO) 9.4 K/uL (1.8-7.7); PLATELET COUNT (AUTO) 299 K/uL (140-450); WHITE BLOOD COUNT (AUTO) 12.7 K/uL (4.8-10.8)
[2019-05-12 06:50] LABS: ANION GAP 15.6 (8-16); CARBON DIOXIDE 21.7 mmol/L (21-32); CREATININE 0.5 mg/dL (0.6-1.3); POTASSIUM 3.3 mmol/L (3.5-5.1); TOTAL BILIRUBIN 0.3 mg/dL (0.0-1.0)
[2019-05-12 08:09] VITALS: BP 110/59
[2019-05-12 08:33] LABS: APPEARANCE,URINE HAZY (CLEAR); BILIRUBIN,URINE NEGATIVE (NEGATIVE); BLOOD, URINE NEGATIVE (NEGATIVE); COLOR,URINE YELLOW (YELLOW); LEUKOCYTE ESTERASE ,URINE TRACE (NEGATIVE); NITRITE, URINE NEGATIVE (NEGATIVE); UGLUCOSE NEGATIVE (NEGATIVE)
[2019-05-12 08:57] LABS: RBC,URINE 0-5 /HPF (0-5); WBC,URINE 0-5 /HPF (0-5)
== END 2019-05-12 08:11 | disposition home or self-care (01) ==
LOC: MED 05:14
DX: O23.42 Unspecified infection of urinary tract in pregnancy, second trimester (principal); O21.8 Other vomiting complicating pregnancy; Z3A.19 19 weeks gestation of pregnancy; Z88.1 Allergy status to other antibiotic agents; Z79.899 Other long term (current) drug therapy
CPT/HCPCS: 36415; 76801; 80053; 81001; 84702; 85025; 86900; 86901; 96365; 96366; 96375; 96376; 99284; J0696; J2270; J2405; J7060; Q0092

== ENCOUNTER 2019-05-12 13:03 | Emergency (ER) | payer MEDICAID ==
[~2019-05-12] VITALS: Ht 160 cm; Wt 73.5 kg
[2019-05-12 13:20] VITALS: BP 102/70
--- NOTE | 2019-05-12 13:25 | NUR ---
PT AMBULATED TO BED 11, STEADY GAIT.
--- NOTE | 2019-05-12 13:39 | NUR ---
SEEN IN OUR ER TODAY BURING PAIN >1 WK LOWER BACK PAIN
[2019-05-12] MEDS ORDERED: NACL 0.9% 1,000 ML IV ONE ×2 (13:55→14:30)
[2019-05-12] MEDS ORDERED: ONDANSETRON 4 MG/2 ML VIAL IVP ONE ×2 (13:55→14:30)
[2019-05-12 14:26] LABS: BASOPHILS % (AUTO) 0.2 % (0.0-2.0); EOSINOPHILS % (AUTO) 0.1 % (0.0-4.0); HEMATOCRIT 36.1 % (36-48); LYMPHOCYTES # (AUTO) 0.6 K/uL (2.5-16.5); MEAN CORPUSCULAR HEMOGLOBIN 28 pg (27-31); MEAN CORPUSCULAR HGB CONC 33 g/dL (33-37); MEAN CORPUSCULAR VOLUME 83.4 fL (80-94); MONOCYTES # (AUTO) 0.3 K/uL (0.8-1.0); MONOCYTES % (AUTO) 2.2 % (1.7-9.3); NEUTROPHILS # (AUTO) 11.9 K/uL (1.8-7.7); NEUTROPHILS % (AUTO) 92.5 % (42.2-75.2); PLATELET COUNT (AUTO) 295 K/uL (140-450); RED BLOOD CELL COUNT(AUTO) 4.33 MIL/uL (4.20-5.40); RED CELL DISTRIBUTION WIDTH 13.5 % (11.6-13.7); WHITE BLOOD COUNT (AUTO) 12.9 K/uL (4.8-10.8)
[2019-05-12] MEDS ORDERED: ONDANSETRON 4 MG/2 ML VIAL ONE (14:28)
[2019-05-12 14:31] LABS: APPEARANCE,URINE SL CLOUDY (CLEAR); BILIRUBIN,URINE NEGATIVE (NEGATIVE); BLOOD, URINE 2+ (NEGATIVE); COLOR,URINE YELLOW (YELLOW); LEUKOCYTE ESTERASE ,URINE TRACE (NEGATIVE); NITRITE, URINE NEGATIVE (NEGATIVE); PH,URINE 7.5 (5.0-9.0); UGLUCOSE NEGATIVE (NEGATIVE)
[2019-05-12 14:40] LABS: ANION GAP 13.9 (8-16); CARBON DIOXIDE 24.8 mmol/L (21-32); CREATININE 0.6 mg/dL (0.6-1.3); POTASSIUM 3.7 mmol/L (3.5-5.1)
--- NOTE | 2019-05-12 15:10 | NUR ---
pt ambulated to bathroom, steady gait.
[2019-05-12 15:22] LABS: RBC,URINE 20-50 /HPF (0-5); WBC,URINE 0-5 /HPF (0-5)
[2019-05-12] MEDS ORDERED: CEPHALEXIN 500 MG CAP PO ONE (15:50)
[2019-05-12] MEDS ORDERED: ACETAMINOPHEN EXTRA STRENGTH 500 MG TAB PO ONE (15:55)
--- NOTE | 2019-05-12 16:30 | NUR ---
PT DENIES NAUSEA ; DID EAT A COMPLETE SANDWICH WITHOUT EMESIS---MD AT BEDSIDE
[2019-05-12 16:43] VITALS: BP 104/54
--- NOTE | 2019-05-12 16:44 | NUR ---
Patient discharged with v/s stable. Written and verbal after care instructions given and explained. Patient alert, oriented and verbalized understanding of instructions. Ambulatory with to car. All questions addressed prior to discharge. ID band removed. Patient advised to follow up with PMD. Rx of KEFLEX/ ZOFRAN ODT STOP MACROBID given. Patient educated on indication of medication including possible reaction and side effects. Opportunity to ask questions provided and answered.
== END 2019-05-12 16:44 | disposition home or self-care (01) ==
LOC: MED 13:03
DX: O23.42 Unspecified infection of urinary tract in pregnancy, second trimester (principal); O21.8 Other vomiting complicating pregnancy; Z3A.19 19 weeks gestation of pregnancy; Z79.899 Other long term (current) drug therapy; Z79.2 Long term (current) use of antibiotics; Z79.1 Long term (current) use of non-steroidal anti-inflammatories (NSAID); Z88.0 Allergy status to penicillin
CPT/HCPCS: 36415; 80048; 81001; 81025; 85025; 87086; 96361; 96374; 99283; J2405

== ENCOUNTER 2019-07-24 19:07 | Emergency (ER) | payer MEDICAID ==
[~2019-07-24] VITALS: Ht 157.5 cm; Wt 80.3 kg
[2019-07-24 19:13] VITALS: BP 129/62
--- NOTE | 2019-07-24 19:20 | NUR ---
PT PROVIDED UA. PT WAITING IN LOBBY.
--- NOTE | 2019-07-24 20:06 | NUR ---
PT TAKEN TO BED 1 WITH STEADY GAIT.
[2019-07-24] MEDS ORDERED: DOPPLER MC ONE (20:07)
--- NOTE | 2019-07-24 20:07 | NUR ---
PT 19 T/O FEMALE BIB SELF FOR C/O R SIDED FLANK PAIN X 1 DAY. 6/10 PAIN SHARP, COMES AND GOES. PT ALSO HAS C/O PAINFUL URINATION X 1 DAY. PT STATES 29 WEEKS PREGNENT, ARIELLE: 10/06/19. . PT DENIES COMPLICATIONS DURING . PT STATES SHE HAS A GYNOCOLOGIST AND IS RECIVING TREATMENT. AFEBRILE. VSS. DENIES N/V/D. RESPIRATIONS ARE EVEN AND UNLABORED. BED LOCKED AND IN LOWEST POSTION. MEDHX: KIDNEY STONES X 1 YEAR AGO. ALLERGIES: NKA
--- NOTE | 2019-07-24 20:10 | NUR ---
HEART RATE AUSCULTATED VIA DOPPLER. FHR:122. FHR LOCATION NOTED IN RLQ IN ABD.
--- NOTE | 2019-07-24 20:24 | NUR ---
PT AMBULATED TO RESTROOM WITH STEAY GAIT.
[2019-07-24 21:40] VITALS: BP 122/70
== END 2019-07-24 21:40 | disposition home or self-care (01) ==
LOC: MED 19:07
DX: O23.42 Unspecified infection of urinary tract in pregnancy, second trimester (principal); Z3A.28 28 weeks gestation of pregnancy; Z88.0 Allergy status to penicillin; Z87.442 Personal history of urinary calculi; Z79.899 Other long term (current) drug therapy
CPT/HCPCS: 81002; 81025; 99283

== ENCOUNTER 2023-05-29 11:44 | Inpatient (IN) | payer BC ==
[~2023-05-29] VITALS: Ht 160 cm; Wt 90.7 kg
[~2023-05-29 11:44] MED LIST changes: +OMEP-278 PO; -OMEP20TC12 PO
[2023-05-29] MEDS ORDERED: PREN-543 PO (12:04)
[2023-05-29] MEDS ORDERED: LACTATED RINGERS 500 ML IV SCH (12:40)
[2023-05-29] MEDS ORDERED: CARBOPROST 250 MCG/ML AMP IM PRN (12:40)
[2023-05-29] MEDS ORDERED: NALBUPHINE 10 MG/ML AMP IVP PRN (12:40)
[2023-05-29] MEDS ORDERED: METHYLERGONOVINE 0.2 MG/ML AMP IM PRN (12:40)
[2023-05-29] MEDS: LACTATED RINGERS 1,000 ML IV SCH (13:03)
[2023-05-29] MEDS: CLINDAMYCIN 900 MG in DEXTROSE 5% 100 ML IV SCH (13:05)
[2023-05-29 13:11] LABS: APPEARANCE,URINE CLOUDY (CLEAR); BILIRUBIN,URINE NEGATIVE (NEGATIVE); BLOOD, URINE 2+ (NEGATIVE); COLOR,URINE YELLOW (YELLOW); LEUKOCYTE ESTERASE ,URINE TRACE (NEGATIVE); NITRITE, URINE NEGATIVE (NEGATIVE); PROTEIN,URINE NEGATIVE (NEGATIVE); UGLUCOSE NEGATIVE (NEGATIVE); UROBILINOGEN,URINE 0.2 EU/dL (0.2 - 1)
[2023-05-29 13:20] LABS: BACTERIA,URINE 10-30 (MOD) /HPF (None Seen); SQUAMOUS EPITHELIAL CELL,UR 4-10 (MOD) /LPF (0-3 (FEW)); WBC,URINE 0-5 /HPF (0-5)
[2023-05-29 13:31] LABS: BASOPHILS % (AUTO) 0.2 % (0.0-2.0); EOSINOPHILS # (AUTO) 0.1 K/uL (0-0.4); EOSINOPHILS % (AUTO) 0.6 % (0.0-4.0); HEMATOCRIT 35.8 % (36-48); HEMOGLOBIN 12.2 g/dL (12.0-16.0); LYMPHOCYTES % (AUTO) 17.4 % (20.5-51.1); MEAN CORPUSCULAR HEMOGLOBIN 27 pg (27-31); MEAN CORPUSCULAR HGB CONC 34 g/dL (33-37); MEAN CORPUSCULAR VOLUME 79.7 fL (80-94); MONOCYTES # (AUTO) 0.7 K/uL (0.8-1.0); MONOCYTES % (AUTO) 6.4 % (1.7-9.3); NEUTROPHILS # (AUTO) 8.7 K/uL (1.8-7.7); NEUTROPHILS % (AUTO) 75.4 % (42.2-75.2); PLATELET COUNT (AUTO) 291 K/uL (140-450); RED BLOOD CELL COUNT(AUTO) 4.49 MIL/uL (4.20-5.40); RED CELL DISTRIBUTION WIDTH 14.7 % (11.6-13.7); WHITE BLOOD COUNT (AUTO) 11.6 K/uL (4.8-10.8)
[2023-05-29 13:39] LABS: INR 0.88 (0.8-1.2); PARTIAL THROMBOPLASTIN TIME 26.8 secs (22-35.6); PROTHROMBIN TIME 9.3 secs (10.8-13.4)
[2023-05-29 13:47] LABS: ALBUMIN 2.6 g/dL (3.4-5.0); ANION GAP 11.9 (8-16); CALCIUM 8.8 mg/dL (8.5-10.1); CARBON DIOXIDE 24.9 mmol/L (21-32); CREATININE 0.4 mg/dL (0.6-1.3); POTASSIUM 3.8 mmol/L (3.5-5.1); TOTAL BILIRUBIN 0.2 mg/dL (0.0-1.0); TOTAL PROTEIN, SERUM 6.6 g/dL (6.4-8.2)
[2023-05-29 14:03] VITALS: BP 101/59; PULSE 74; RESP 18; TEMP 98.2
[2023-05-29] MEDS: MISOPROSTOL 25 MCG TAB VG SCH (21:07)
[2023-05-30 05:50] VITALS: BP 105/56; PULSE 72; RESP 18
[2023-05-30] MEDS: MORPHINE SULFATE 10 MG/ML VIAL IVP PRN (05:50)
[2023-05-30] MEDS: ONDANSETRON 4 MG/2 ML VIAL IVP PRN (05:51)
[2023-05-30] MEDS: DEXT 5% / LACT RING 1,000 ML IV SCH (15:15)
[2023-05-30] MEDS ORDERED: DEXT 5% / LACT RING 1,000 ML IV SCH (15:45)
== END 2023-05-30 17:05 | disposition home or self-care (01) | DRG 833 ==
LOC: MLD 11:44 → OBSVTOIN 12:36
PROVIDERS: ADMIT Obstetrics & Gynecology; ATTEND Obstetrics & Gynecology
DX: O26.893 Other specified pregnancy related conditions, third trimester (principal); Z3A.39 39 weeks gestation of pregnancy; Z88.0 Allergy status to penicillin
CPT/HCPCS: 36415; 76819; 80053; 81001; 85025; 85610; 85730; 86592; 86886; 86900; 86901; 87086; J2270; J2405; J3490; J7060; Q0092